=== PATIENT | male | born 1995 | race Two or more races ===

== ENCOUNTER 2018-12-27 13:37 | Emergency (ER) | payer MEDICAID ==
[~2018-12-27] VITALS: Ht 165.1 cm; Wt 82.0 kg
[2018-12-27 13:51] VITALS: BP 119/68
[2018-12-27] MEDS ORDERED: DEXAMETHASONE 10 MG/ML VIAL IM ONE (15:45)
== END 2018-12-27 15:55 | disposition home or self-care (01) ==
LOC: ER 13:37
DX: T63.441A Toxic effect of venom of bees, accidental (unintentional), initial encounter (principal); Y92.89 Other specified places as the place of occurrence of the external cause; F17.200 Nicotine dependence, unspecified, uncomplicated
CPT/HCPCS: 96372; 99283; J1100